=== PATIENT | female | born 1930 | race Caucasian/White ===

== ENCOUNTER 2018-04-29 08:15 | Inpatient (IN) ==
[2018-04-29] MEDS: NS 1000 ML 1,000 ML IV SCH ×3 (09:00→20:51)
--- NOTE | 2018-04-29 09:05 | DR.DIZZY ---
HPI Time seen Time seen: 08:55 PCP Primary Care Physician: JAM YUNG Complaint Chief Complaint Doctor Comments: Patient admits to weakness for two days, decreased appetite and dizziness when she stands. She also complains of nausea. She denies fever or diarrhea. 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 Past Surgical History: Yes Surgical History: Appendectomy, Cholecystectomy, Hysterectomy, Thyroidectomy and Other Family History History of Family Medical Conditions: No Social History Does patient currently use any type of tobacco product: No Have you used tobacco products in the last 12 months: No Type of Tobacco Use: None Does any household member use tobacco: No Alcohol Use: None Do you use any recreational Drugs:: No Lives With: Alone Lives Where: Home infectious screening In the last 2 months have you had wt loss of >10#?: NO Have you traveled outside the country in the last 6 months?: No Isolation: Standard ROS Review of Systems Constitutional: No Symptoms Reported Eyes: No Symptoms Reported ENTM: No Symptoms Reported Cardiovascular: No Symptoms Reported Neurological: No Symptoms Reported PE Vital Signs Vitals: Temperature 98.8 F Pulse Rate 95 Respiratory Rate 20 Blood Pressure [Left Arm] 112/55 Blood Pressure [Right Arm] 101/55 Blood Pressure 113/59 O2 Sat by Pulse Oximetry 96 General General Appearance: Alert and In No Apparent Distress Head Head Exam: Normal Inspection and Atraumatic Eyes Eye exam: Normal Appearance, PERRL and EOMI Pupils: Regular, Round: Bilateral Sclera/Conjunctival: Normal Inspection: Bilateral Anterior Chamber: Normal Inspection: Bilateral Posterior Chamber: Deferred: Bilateral ENT ENT Exam: Normal Exam, Normal Oropharynx and Normal External Ear Exam Neck Neck Exam: Normal Inspection and Full ROM Chest Chest Inspection: Normal Inspection and Symmetric Chest Wall Rise Respiratory Respiratory Exam: Normal Lung Sounds Bilat; negative Prolonged Expiratory Phase and Respiratory Distress Respiratory Exam: Bilateral: Clear to Auscultation Cardiovascular Cardiovascular Exam: Regular Rate and Normal Rhythm Abdominal Exam Abdominal Exam: Normal Inspection and Normal Bowel Sounds Abdominal Tenderness: negative RUQ, RLQ and LUQ Extremeties Extremities Exam: Normal Inspection Neurologic Neurological Exam: Alert, Oriented X3 and CN II-XII Intact Cranial Nerve Exam: EOM Function (II, III, IV, ): Normal, Facial Sensation (V) : Normal, Facial Palsy (VII): Normal, Gag reflex (XI): Normal, Spinal Accessory Function (XI): Normal and Tongue Deviation: Normal Skin Skin Exam: Warm, Dry and Intact COURSE Treatment Treatment: NS, pneumonia protocol Consultation Called: 12:15 Consultation Comments: Dr Kellogg agreed to admit for further evaluation and treatment ROR Labs Reviewed Laboratory Results Reviewed?: Yes Result Diagrams: 04/29/18 09:10 04/29/18 09:10 Laboratory: WBC 7.7 X10^3/uL (3.6-10.0) 04/29/18 09:10 RBC 3.96 X10^6/uL (3.5-5.4) 04/29/18 09:10 Hgb 13.3 g/dL (12.0-16.0) 04/29/18 09:10 Hct 37.2 % (36.0-47.0) 04/29/18 09:10 MCV 94.0 fL (80.0-100.0) 04/29/18 09:10 MCH 33.6 pg (27.0-34.0) 04/29/18 09:10 MCHC 35.8 g/dL (33.0-35.0) H 04/29/18 09:10 RDW 11.7 % (11.6-16.5) 04/29/18 09:10 Plt Count 279 X10^3/uL (150.0-450.0) 04/29/18 09:10 MPV 9.4 fL (7.4-11.0) 04/29/18 09:10 Neut % (Auto) 76.6 % (42.0-75.0) H 04/29/18 09:10 Lymph % (Auto) 12.7 % (21.0-51.0) L 04/29/18 09:10 [place] % (Auto) 9.8 % (0.0-13.0) 04/29/18 09:10 Eos % (Auto) 0.2 % (0.9-2.9) L 04/29/18 09:10 Baso % (Auto) 0.7 % (0.2-1.0) 04/29/18 09:10 Neut # (Auto) 5.9 x10^3/uL (2.2-4.8) H 04/29/18 09:10 Lymph # (Auto) 1.0 X10^3/uL (1.3-2.9) L 04/29/18 09:10 Perkins # (Auto) 0.7 x10^3/uL (0.3-0.8) 04/29/18 09:10 Eos # (Auto) 0.0 x10^3/uL (0.0-0.2) 04/29/18 09:10 Baso # (Auto) 0.1 X10^3/uL (0.0-0.1) 04/29/18 09:10 Absolute Nucleated RBC 0.0 /100WBC 04/29/18 09:10 Sodium 132 mmol/L (136-145) L 04/29/18 09:10 Corrected Sodium TNP 04/29/18 09:10 Potassium 4.2 mmol/L (3.5-5.1) 04/29/18 09:10 Chloride 96 mmol/L (98-107) L 04/29/18 09:10 Carbon Dioxide 31.2 mmol/L (21-32) 04/29/18 09:10 BUN 20 mg/dL (7-18) H 04/29/18 09:10 Creatinine 0.65 mg/dL (0.55-1.02) 04/29/18 09:10 Est GFR (MDRD) Af Amer > 60 (>60) 04/29/18 09:10 Est GFR (MDRD) Non-Af > 60 (>60) 04/29/18 09:10 Glucose 108 mg/dL (65-99) H 04/29/18 09:10 Calcium 9.5 mg/dL (8.5-10.1) 04/29/18 09:10 Corrected Calcium 10.1 mg/dL (8.5-10.1) 04/29/18 09:10 Total Bilirubin 0.60 mg/dL (0.2-1.0) 04/29/18 09:10 AST 23 Units/L (15-37) 04/29/18 09:10 ALT 22 Units/L (12-78) 04/29/18 09:10 Alkaline Phosphatase 56 Units/L (46-116) 04/29/18 09:10 Total Protein 7.9 g/dL (6.4-8.2) 04/29/18 09:10 Albumin 3.3 g/dL (3.4-5.0) L 04/29/18 09:10 Globulin 4.6 g/dL (2.5-4.5) H 04/29/18 09:10 Albumin/Globulin Ratio 0.7 Ratio (1.1-2.1) L 04/29/18 09:10 TSH 3rd Generation 2.031 uIU/mL (0.358-3.74) 04/29/18 09:10 Specimen Type Clean catch urine 04/29/18 10:04 Urine Color Yellow (YELLOW) 04/29/18 10:04 Urine Appearance Slightly hazy (CLEAR) 04/29/18 10:04 Urine pH 6.5 (5.0 - 8.0) 04/29/18 10:04 Ur Specific [place] 1.015 (1.000-1.030) 04/29/18 10:04 Urine Protein 1+ (NEGATIVE) 04/29/18 10:04 Urine Glucose (UA) Negative (NEGATIVE) 04/29/18 10:04 Urine Ketones Negative (NEGATIVE) 04/29/18 10:04 Urine Occult Blood 1+ (NEGATIVE) 04/29/18 10:04 Urine Nitrite Negative (NEGATIVE) 04/29/18 10:04 Urine Bilirubin Negative (NEGATIVE) 04/29/18 10:04 Urine Urobilinogen Normal (NORMAL) 04/29/18 10:04 Ur Leukocyte Esterase 1+ (NEGATIVE) 04/29/18 10:04 Urine RBC 3-5 /HPF (NONE SEEN) 04/29/18 10:04 Urine WBC 0-2 /HPF (NONE SEEN) 04/29/18 10:04 Ur Squamous Epith Cells Rare /HPF (NEGATIVE) 04/29/18 10:04 Urine Bacteria Trace /HPF (NEGATIVE) 04/29/18 10:04 Urine Mucus Few /HPF (NEGATIVE) 04/29/18 10:04 Ur Culture Indicated? No/not indicated 04/29/18 10:04 ADDITIONAL NOTES Additional Notes Additional Notes: Patient was admitted to the floor for hyponatremia and pneumonia.
[2018-04-29 09:27] LABS: BASOPHILS # (AUTO) 0.1 X10^3/uL (0.0-0.1); BASOPHILS % (AUTO) 0.7 % (0.2-1.0); EOSINOPHILS % (AUTO) 0.2 % (0.9-2.9); HEMATOCRIT 37.2 % (36.0-47.0); HEMOGLOBIN 13.3 g/dL (12.0-16.0); LYMPHOCYTES % (AUTO) 12.7 % (21.0-51.0); MEAN CORPUSCULAR HEMOGLOBIN 33.6 pg (27.0-34.0); MEAN CORPUSCULAR HGB CONC 35.8 g/dL (33.0-35.0); MEAN PLATELET VOLUME 9.4 fL (7.4-11.0); MONOCYTES # (AUTO) 0.7 x10^3/uL (0.3-0.8); MONOCYTES % (AUTO) 9.8 % (0.0-13.0); NEUTROPHILS # (AUTO) 5.9 x10^3/uL (2.2-4.8); NEUTROPHILS % (AUTO) 76.6 % (42.0-75.0); PLATELET COUNT 279 X10^3/uL (150.0-450.0); RED BLOOD COUNT 3.96 X10^6/uL (3.5-5.4); RED CELL DISTRIBUTION WIDTH 11.7 % (11.6-16.5); WHITE BLOOD COUNT 7.7 X10^3/uL (3.6-10.0)
[2018-04-29 09:46] LABS: ALANINE AMINOTRANSFERASE 22 Units/L (12-78); ALBUMIN 3.3 g/dL (3.4-5.0); ALKALINE PHOSPHATASE 56 Units/L (46-116); ASPARTATE AMINO TRANSFERASE 23 Units/L (15-37); BLOOD UREA NITROGEN 20 mg/dL (7-18); CALCIUM 9.5 mg/dL (8.5-10.1); CARBON DIOXIDE 31.2 mmol/L (21-32); CHLORIDE 96 mmol/L (98-107); COR CA(FOR HYPOALB) 10.1 mg/dL (8.5-10.1); CREATININE 0.65 mg/dL (0.55-1.02); SODIUM 132 mmol/L (136-145); TOTAL PROTEIN 7.9 g/dL (6.4-8.2); TSH (3RD GENERATION) 2.031 uIU/mL (0.358-3.74); eGFR NON BLACK RACES > 60 (>60)
[2018-04-29] MEDS ORDERED: VIBRAMYCIN IV ONE (10:14)
[2018-04-29] MEDS ORDERED: NS 250 ML IV IV ONE (10:14)
[2018-04-29 10:37] LABS: BILIRUBIN,URINE NEGATIVE (NEGATIVE); BLOOD/HEMOGLOBIN,URINE 1+ (NEGATIVE); GLUCOSE, URINE NEGATIVE (NEGATIVE); KETONES,URINE NEGATIVE (NEGATIVE); LEUKOCYTE ESTERASE ,URINE 1+ (NEGATIVE); NITRITES,URINE NEGATIVE (NEGATIVE); PH,URINE 6.5 (5.0 - 8.0); PROTEIN,URINE 1+ (NEGATIVE); UROBILINOGEN,URINE NORMAL (NORMAL)
[2018-04-29 10:40] LABS: APPEARANCE,URINE SLIGHTLY HAZY (CLEAR); COLOR,URINE YELLOW (YELLOW)
[2018-04-29 10:44] LABS: BACTERIA,URINE TRACE /HPF (NEGATIVE); MUCUS,URINE FEW /HPF (NEGATIVE); SQUAMOUS EPITHELIAL CELL,UR RARE /HPF (NEGATIVE)
--- NOTE | 2018-04-29 11:26 | RAD ---
HISTORY: Weakness and not feeling well. Study: PA and lateral chest. Comparison: Chest x-ray dated November 21, 2013. Findings: The trachea is midline. The cardiac silhouette is unremarkable. Right lower lobe patchy airspace di sease. Question of trace right pleural effusion. The left lung is otherwise clear. No obvious pneumot horax. Chronic emphysematous changes. The bony thorax is unremarkable. IMPRESSION: Right lower lobe patchy airspace disease. Recommend follow-up chest x-ray in 4-6 weeks to document stability/resolution. Reported By:
[2018-04-29] MEDS ORDERED: TUSSIONEX PENNKINETIC SUSP PO PRN (13:10)
[2018-04-29] MEDS ORDERED: ROCEPHIN 1 GRAM IV PREMIX 1 G/50 ML IV.SOLN. IV SCH (14:00)
[2018-04-29] MEDS ORDERED: VIBRAMYCIN 100 MG in NS 100 ML IV + SPIKE MINIBAG* 100 ML IV SCH (14:00)
[2018-04-29] MEDS ORDERED: NS 1/2 1000 ML IV 1,000 ML IV SCH (14:00)
[2018-04-29] MEDS: FORTAZ or TAZICEF VIAL INJ 1 G in NS 100 ML IV + SPIKE MINIBAG* 100 ML IV SCH (15:55)
[2018-04-29] MEDS: DUONEB 0.5 MG/3 MG NEB SCH ×2 (16:13→21:17)
[2018-04-29 16:51] VITALS: BMI 15.7
[2018-04-29] MEDS: ROBITUSSIN DM PO SCH ×2 (17:48→20:51)
[2018-04-30] MEDS: NS 1000 ML 1,000 ML IV SCH ×4 (01:00→17:31)
[2018-04-30 05:13] LABS: BASOPHILS # (AUTO) 0.1 X10^3/uL (0.0-0.1); BASOPHILS % (AUTO) 0.8 % (0.2-1.0); EOSINOPHILS % (AUTO) 0.4 % (0.9-2.9); HEMATOCRIT 34.9 % (36.0-47.0); HEMOGLOBIN 12.3 g/dL (12.0-16.0); LYMPHOCYTES % (AUTO) 12.8 % (21.0-51.0); MEAN CORPUSCULAR HEMOGLOBIN 33.3 pg (27.0-34.0); MEAN CORPUSCULAR HGB CONC 35.3 g/dL (33.0-35.0); MEAN CORPUSCULAR VOLUME 94.4 fL (80.0-100.0); MEAN PLATELET VOLUME 9.3 fL (7.4-11.0); MONOCYTES # (AUTO) 0.7 x10^3/uL (0.3-0.8); NEUTROPHILS # (AUTO) 6.3 x10^3/uL (2.2-4.8); PLATELET COUNT 249 X10^3/uL (150.0-450.0); RED CELL DISTRIBUTION WIDTH 11.7 % (11.6-16.5); WHITE BLOOD COUNT 8.1 X10^3/uL (3.6-10.0)
[2018-04-30 05:29] LABS: ALANINE AMINOTRANSFERASE 21 Units/L (12-78); ALBUMIN 2.7 g/dL (3.4-5.0); ALKALINE PHOSPHATASE 47 Units/L (46-116); ASPARTATE AMINO TRANSFERASE 19 Units/L (15-37); BLOOD UREA NITROGEN 10 mg/dL (7-18); CALCIUM 8.5 mg/dL (8.5-10.1); CARBON DIOXIDE 28.2 mmol/L (21-32); CHLORIDE 102 mmol/L (98-107); COR CA(FOR HYPOALB) 9.5 mg/dL (8.5-10.1); CREATININE 0.59 mg/dL (0.55-1.02); SODIUM 137 mmol/L (136-145); TOTAL PROTEIN 6.7 g/dL (6.4-8.2); eGFR NON BLACK RACES > 60 (>60)
[2018-04-30] MEDS: FORTAZ or TAZICEF VIAL INJ 1 G in NS 100 ML IV + SPIKE MINIBAG* 100 ML IV SCH ×3 (06:27→21:57)
--- NOTE | 2018-04-30 06:29 | RAD ---
HISTORY: Shortness of breath Study: Chest AP portable Comparison: 04/29/2018 Findings: The heart is within normal limits in size. The yogesh are normal. The aorta is calcified. The lungs are hyperinflated consistent with COPD. Abnormal parenchymal density is again demonstrated in the right lower lobe suggestive of a right basilar pneumonia and unchanged from the prior examination. Follow-u p until complete resolution is recommended. The remainder of the lung heredia are clear. The bony thor ax is unremarkable. IMPRESSION: Abnormal parenchymal density in the right lung base suggestive of pneumonia stable when compared with the prior examination follow-up until complete resolution is recommended Hyperinflation consistent with COPD in the appropriate clinical setting Reported By:
[2018-04-30] MEDS: ROBITUSSIN DM PO SCH ×4 (08:34→21:56)
[2018-04-30] MEDS: TAB-A-VITE PO SCH (08:34)
[2018-04-30] MEDS: PLAVIX PO SCH (08:36)
[2018-04-30] MEDS: DUONEB 0.5 MG/3 MG NEB SCH ×4 (08:51→20:54)
[2018-04-30] MEDS ORDERED: GLUCOSAMINE D3 BOSWELLIA SERR PO SCH (09:00)
[2018-04-30] MEDS ORDERED: ROCEPHIN 1 GRAM IV PREMIX 1 G/50 ML IV.SOLN. IV SCH (09:00)
[2018-04-30] MEDS ORDERED: [UNRECOGNIZED DRUG - OTHER] PO SCH (10:15)
[2018-04-30] MEDS ORDERED: PATIENT'S HOME MEDICATION (Cholecalciferol (Vitamin D3) [Vitamin D3] 1 CAP) PO SCH (10:15)
[2018-04-30] MEDS ORDERED: GLUCOSAMINE CHONDROITIN MSM PO SCH (10:15)
[2018-04-30] MEDS ORDERED: OSCAL+D or CALTRATE+D PO SCH (11:00)
[2018-04-30] MEDS: NexIUM PO SCH (13:29)
[2018-04-30] MEDS: VITAMIN D3 PO SCH (13:29)
[2018-05-01] MEDS: NS 1000 ML 1,000 ML IV SCH (03:26)
[2018-05-01 05:35] LABS: BASOPHILS % (AUTO) 0.7 % (0.2-1.0); EOSINOPHILS % (AUTO) 0.5 % (0.9-2.9); HEMATOCRIT 31.9 % (36.0-47.0); HEMOGLOBIN 11.2 g/dL (12.0-16.0); LYMPHOCYTES # (AUTO) 1.3 X10^3/uL (1.3-2.9); LYMPHOCYTES % (AUTO) 18.7 % (21.0-51.0); MEAN CORPUSCULAR HEMOGLOBIN 33.3 pg (27.0-34.0); MEAN CORPUSCULAR HGB CONC 35.2 g/dL (33.0-35.0); MEAN CORPUSCULAR VOLUME 94.5 fL (80.0-100.0); MEAN PLATELET VOLUME 9.5 fL (7.4-11.0); MONOCYTES # (AUTO) 0.8 x10^3/uL (0.3-0.8); MONOCYTES % (AUTO) 10.7 % (0.0-13.0); NEUTROPHILS % (AUTO) 69.4 % (42.0-75.0); PLATELET COUNT 175 X10^3/uL (150.0-450.0); RED BLOOD COUNT 3.37 X10^6/uL (3.5-5.4); RED CELL DISTRIBUTION WIDTH 11.9 % (11.6-16.5); WHITE BLOOD COUNT 7.2 X10^3/uL (3.6-10.0)
[2018-05-01] MEDS: FORTAZ or TAZICEF VIAL INJ 1 G in NS 100 ML IV + SPIKE MINIBAG* 100 ML IV SCH (05:39)
[2018-05-01 05:56] LABS: ALANINE AMINOTRANSFERASE 21 Units/L (12-78); ALBUMIN 2.3 g/dL (3.4-5.0); ALKALINE PHOSPHATASE 44 Units/L (46-116); ASPARTATE AMINO TRANSFERASE 24 Units/L (15-37); BLOOD UREA NITROGEN 6 mg/dL (7-18); CALCIUM 8.1 mg/dL (8.5-10.1); CARBON DIOXIDE 25.7 mmol/L (21-32); CHLORIDE 102 mmol/L (98-107); COR CA(FOR HYPOALB) 9.5 mg/dL (8.5-10.1); CREATININE 0.53 mg/dL (0.55-1.02); SODIUM 135 mmol/L (136-145); eGFR NON BLACK RACES > 60 (>60)
--- NOTE | 2018-05-01 07:22 | RAD ---
HISTORY: Shortness of breath Study: Single-view chest Comparison: 04/30/2018 Findings: The trachea is midline. The cardiac silhouette is unremarkable. Worsening opacification/airspace di sease is visualized within the lower right lung, consistent with pneumonia. No pleural effusion is id entified. The lungs are hyperinflated, and there are chronic interstitial changes as well flattening of the diaphragms, findings consistent with COPD. The bony thorax is grossly intact. IMPRESSION: 1. Worsening right basilar airspace disease, most consistent with pneumonia. Reported By:
[2018-05-01 08:04] VITALS: BP 105/51
[2018-05-01] MEDS: TAB-A-VITE PO SCH (08:45)
[2018-05-01] MEDS: PLAVIX PO SCH (08:45)
[2018-05-01] MEDS: NexIUM PO SCH (08:45)
[2018-05-01] MEDS: ROBITUSSIN DM PO SCH (08:46)
[2018-05-01] MEDS: VITAMIN D3 PO SCH (08:46)
[2018-05-01] MEDS: DUONEB 0.5 MG/3 MG NEB SCH (09:02)
--- NOTE | 2018-05-06 08:19 | DR.H&P ---
H&P - History & Physical for Day of: H&P Date: 04/29/18 - Chief Complaint Chief Complaint: weakness, dizziness, short of breath, nausea - History of Present Illness History of Present Illness: is a 88 year old patient of ours who presented to the emergency room with reports of weakness and dizziness. Patient reports symptoms started about two days ago with associated decreased appetite, shortness of breath, and nausea. She states that she has had a non- productive cough at times. She denies fever or diarrhea. On auscultation of lung heredia patient noted with diminished breath sounds throughout. On arrival , vitals were 98.8, 95, 20, 96% RA, 113/59. Labs were obtained. Abnormal lab values include the following: MCHC 35.8, Sodium 132, Chloride 96, BUN 20, Glucose 108, Albumin 3.3, Globulin 4.6, A/G Ratio 0.7. Urinalysis revealed: Slightly Hazy, Protein 1+, Occult Blood 1+, Leuk Est 1+, RBC 3-5, WBC 0-2, Bacteria Trace, Mucus Few. Blood Culture Pending. Sputum Culture Pending; Gram Stain - Gram Pos Rods Few, Gram Pos Cocci Few in pairs, Gram Neg Rods Rare. Chest X-Ray: Right lower lobe patchy airspace disease. Recommend follow-up chest x-ray in 4-6 weeks to document stability/resolution. Patient admitted to the hospital and started on pneumonia protocol including IV fluids, IV antibiotics and neb treatments. We will follow up with labs in the morning and continue to monitor. - Past Medical History Past Medical History: GERD, Arthritis - Past Surgical History Surgical History: Bowel Resection, Cholecystectomy, Hysterectomy, Thyroidectomy - Family History Family Medical History: Coronary Artery Disease - Social History Does patient currently use any type of tobacco product: No Have you used tobacco products in the last 12 months: No Type of Tobacco Use: None Does any household member use tobacco: No Alcohol Use: None Drug Use: None - Medications Home Medications: acetaminophen Allergy (Verified 04/29/18 09:25) hydrocodone Allergy (Verified 04/29/18 09:25) Penicillins Allergy (Verified 04/29/18 09:25) CONTINUE taking the following medications Glucosamine Chondroitin Msm 2 tab PO DAILY 04/29/18 [History] cholecalciferol (vitamin D3) [Vitamin D3] 1 cap PO DAILY 04/29/18 [History] clopidogrel 1 tab PO DAILY 04/29/18 [History] vitamin B comp with C no.4 [Super B Complex + C] 1 tab PO DAILY 04/29/18 [ History] New Prescriptions ciprofloxacin HCl [Cipro] 500 mg PO BID 10 Days #20 tab 05/01/18 [Rx] multivitamin [Tab-A-Shon] 1 tab PO DAILY tab 05/01/18 [Rx] - Review of Systems Constitutional: See HPI, Weakness, Other (decreased appetite) Eyes: No Symptoms Reported ENT: No Symptoms Reported Respiratory: Cough, Shortness of Breath Cardiovascular: Light Headedness Gastrointestinal: Nausea Genitourinary: No Symptoms Reported Musculoskeletal: No Symptoms Reported Skin: No Symptoms Reported Neurological: Weakness - Physical Exam Vital Signs: Temperature 99.0 F Pulse Rate [Left Brachial] 70 Pulse Rate 71 Respiratory Rate 20 Blood Pressure [Left Arm] 130/56 Blood Pressure [Right Arm] 105/51 Blood Pressure 113/59 O2 Sat by Pulse Oximetry 97 Oriented: Normal Eyes: Normal Ear: Normal Nose: Normal Throat: Normal Respiratory: Diminished Throughout Cardiovascular: Normal. negative: S3, S4, Murmur : Normal Auscultation: Bowel Sounds: Normal Palpation: Normal Tenderness: Normal Skin: Normal Musculoskeletal: Normal Psychiatric: Normal Mood Description: Calm Affect: Normal Speech Pattern: Clear - Assessment/Plan (1) Pneumonia Qualifiers: Pneumonia type: due to unspecified organism Laterality: right Lung location: lower lobe of lung Qualified Code(s): J18.1 - Lobar pneumonia, unspecified organism Status: Acute Plan: admit, pneumonia protocol, respiratory treatments, supplemental oxygen, continue to monitor (2) Hyponatremia Status: Acute Plan: normal saline, continue to monitor - Allergies Allergies/Adverse Reactions: Allergies Allergy/AdvReac Type Severity Reaction Status Date / Time acetaminophen Allergy Verified 04/29/18 09:25 hydrocodone Allergy Verified 04/29/18 09:25 Penicillins Allergy Verified 04/29/18 09:25
--- NOTE | 2018-06-06 12:00 | DR.CARTERD ---
- Discharge Summary for: Discharge Summary for Date of:: 05/01/18 - Admission Date Date of Admission: 04/29/18 - Admission Diagnoses Admission Diagnosis: (1) Pneumonia (2) Hyponatremia (3) Shortness of breath - Discharge Date Discharge Date: 05/01/18 - Discharge Diagnoses Discharge Diagnosis: (1) Pneumonia (2) Hyponatremia (3) Shortness of breath - Hospital Course Hospital Course: Day one, Ms. Wellington is a 88 year old patient of ours who presented to the emergency room with reports of weakness and dizziness. Patient reported symptoms started about two days prior with associated decreased appetite, shortness of breath, and nausea. She stated that she had a non-productive cough at times. She denied fever or diarrhea. On auscultation of lung heredia patient noted with diminished breath sounds throughout. On arrival, vitals were 98.8, 95, 20, 96% RA, 113/59. Labs were obtained. Abnormal lab values included the following: MCHC 35.8, Sodium 132, Chloride 96, BUN 20, Glucose 108, Albumin 3.3 , Globulin 4.6, A/G Ratio 0.7. Urinalysis revealed: Slightly Hazy, Protein 1+, Occult Blood 1+, Leuk Est 1+, RBC 3-5, WBC 0-2, Bacteria Trace, Mucus Few. Blood Culture Pending. Sputum Culture Pending; Gram Stain - Gram Pos Rods Few, Gram Pos Cocci Few in pairs, Gram Neg Rods Rare. Chest X-Ray: Right lower lobe patchy airspace disease. Recommend follow-up chest x-ray in 4-6 weeks to document stability/resolution. Patient admitted to the hospital and started on pneumonia protocol including IV fluids, IV antibiotics, and neb treatments. We continued to monitor. Day two, Ms. Wellington continued treatment for right lower lobe pneumonia and hyponatremia. She continued with reports of shortness of breath at rest and cough. Sodium was normal at 137 after IV fluids. We continued treatment of aggressive IV antibiotics and respiratory treatments. Day three, Ms. Wellington stated she was feeling better. She reported cough was improving. She denied shortness of breath or nausea. Appetite was fair. Cough was intermittent, non-productive. Sputum and blood cultures were negative for growth. Vital signs stable. Labs wnl. We planned for discharge. Instructions for medications and follow up were discussed with patient and family, both voiced understanding. Patient discharged home instable condition with family. - Discharge Medications Discharge Medications: Home Medication List Glucosamine Chondroitin Msm 2 tab PO DAILY 04/29/18 [History] cholecalciferol (vitamin D3) [Vitamin D3] 1 cap PO DAILY 04/29/18 [History] clopidogrel 1 tab PO DAILY 04/29/18 [History] vitamin B comp with C no.4 [Super B Complex + C] 1 tab PO DAILY 04/29/18 [ History] multivitamin [Tab-A-Shon] 1 tab PO DAILY tab 05/01/18 [Rx] Prescriptions: Home medications esomeprazole magnesium [Nexium] 40 mg PO DAILY 11/21/13 - Discharge Disposition Discharge Disposition: Patient is to follow up in our office in one week.
== END 2018-05-01 09:55 | disposition home or self-care (01) | DRG 194 ==
LOC: MED/SURG 08:18 → ER 08:18 → OBSVTOIN 14:01 → MED/SURG 14:56
PROVIDERS: ADMIT Internal Medicine; ATTEND Internal Medicine
DX: J18.8 Other pneumonia, unspecified organism; R53.1 Weakness; R06.02 Shortness of breath; R42 Dizziness and giddiness; E87.1 Hypo-osmolality and hyponatremia; K21.9 Gastro-esophageal reflux disease without esophagitis
CPT/HCPCS: 36415; 71010; 71020; 71045; 71046; 80053; 81001; 83605; 84443; 85025; 87040; 87070; 87205; 94640; 94760; 96365; 96367; 96374; 99282; 99284; A4222; J0713; J3490; J7030; J7050; J7620